=== PATIENT | female | born 1950 | race American Indian/Alaskan Native ===

== ENCOUNTER 2020-01-30 13:41 | Outpatient (CLI) | payer MEDICARE ==
--- NOTE | 2020-01-30 16:04 | Mammography Report ---
DIGITAL SCREENING MAMMOGRAM WITH CAD, 01/30/2020 INDICATION: Routine screening mammography. TECHNIQUE: Digital bilateral 2D mammography was obtained in the craniocaudal and mediolateral obliq ue projections. This examination was interpreted with the benefit of Computer-Aided Detection analysi s. COMPARISON: No prior mammograms are available at the time of this dictation. [place] mamm[place]. FINDINGS: Breast Density: The breasts are heterogeneously dense, which may obscure small masses. There is no evidence of dominant mass, suspicious calcifications or architectural distortion in the l eft breast. There is an 8 mm nodular density in the right breast at approximately 2-3:00 approximatel y 6-7 cm from the nipple. IMPRESSION: Right breast nodular density as described above. We will attempt to obtain prior outside mammogram for comparison. If prior outside mammograms cannot be obtained, the patient should return for right breast ultrasound and possible spot compression imaging. Please allow us 2 weeks to obtain prior outside mammograms before sending patient for further evaluation. Follow up recommendation: Right breast ultrasound and possible spot compression views. We will attemp t to obtain prior outside mammograms first. Category 0: Incomplete. Needs additional imaging evaluation and/or prior mammograms for comparison. A "normal" or negative report should not discourage follow up or biopsy of a clinically significant f inding. A written summary of these findings will be mailed to the patient. The patient will be entered into a mammography reporting system which will generate a reminder letter for the patient's next appointmen t at the appropriate interval. The [employer] recommends yearly mammograms starting at age 40 and continuing as l demetrius as a woman is in good health. Breast MRI is recommended for women with an approximate 20-25% or greater lifetime risk of breast cancer, including women with a strong family history of breast or ova jovanny cancer or who have been treated for Hodgkin's disease. Signer Name: Izabella Jay MD Signed: 01/30/2020 4:00 PM Workstation Name: [employer]
== END 2020-01-30 13:42 | disposition home or self-care (01) ==
LOC: SPVWC 13:41
PROVIDERS: ATTEND Internal Medicine
DX: Z12.31 Encounter for screening mammogram for malignant neoplasm of breast (principal)
CPT/HCPCS: 77067